=== PATIENT | female | born 1995 | race Asian ===

== ENCOUNTER 2018-03-07 09:52 | Emergency (ER) | payer OTHER ==
[~2018-03-07] VITALS: Ht 157.5 cm; Wt 81.6 kg
[~2018-03-07 09:52] MED LIST: LEVSIN0.125 M1 PO; ZOFRAN4 M2 PO
[2018-03-07 10:04] VITALS: BP 118/79
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
[2018-03-07] MEDS ORDERED: IBUPROFEN600 M1 PO (14:59)
[2018-03-07] MEDS ORDERED: CYCLOBENZAPRINE10 M1 PO (14:59)
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
== END 2018-03-07 15:09 ==
LOC: ERH 09:52
DX: S16.1XXA Strain of muscle, fascia and tendon at neck level, initial encounter (principal); S09.90XA Unspecified injury of head, initial encounter; V47.5XXA Car driver injured in collision with fixed or stationary object in traffic accident, initial encounter; Y92.411 Interstate highway as the place of occurrence of the external cause
CPT/HCPCS: 71046; 81001; 81025; 93005; 93010; J3101